=== PATIENT | female | born 1970 | race Caucasian/White ===

== ENCOUNTER → 2016-07-15 | Outpatient (CLI) | payer BC ==
[~2016-07-15] MED LIST: CITA40TA14 PO; GLUC100015 PO; HYDR-3989 PO; OMEP-122 PO; TRIA1TAB93 PO
== END ==
LOC: WC.BC 07:59
DX: Z12.31 Encounter for screening mammogram for malignant neoplasm of breast (principal); N64.59 Other signs and symptoms in breast
CPT/HCPCS: 77063; G0202